=== PATIENT | female | born 1990 | race Caucasian/White ===

== ENCOUNTER 2016-12-12 21:37 | Emergency (ER) | payer BC, MEDICAID ==
--- NOTE | 2016-12-13 16:40 | ER ---
ADMIT: 12/12/2016 RM/LOC: ER [facility] MR#: [id number] [address] [id number] TR[address] [place] [address] Emergency Room Report SEX: F AGE: 26 : 1990 DATE: 12/12/2016 ADDENDUM: This patient comes to the ER because she is having severe pain in her left ear that started earlier today. She states she has had some reddish discharge from her ear. On physical exam, she has a bulging left TM and there is a small amount of blood, discharged in her ear. I do not see any perforations on the TM, however. She was given Percocet in the ER. I wrote a prescription for Cortisporin otic suspension and also for amoxicillin. Please see my T-sheet. SILVIA Masters / Félix Hameed MD / modl JOB #: [id number] CC: Félix Hameed MD, Attending Physician Carina Salazar MD, Family Physician
== END 2016-12-12 22:30 | disposition home or self-care (01) ==
LOC: ER 21:37
DX: H66.92 Otitis media, unspecified, left ear (principal)